=== PATIENT | female | born 1960 | race Caucasian/White ===

== ENCOUNTER → 2024-01-13 11:35 | Outpatient (REF) | payer BC, SELFPAY | LOC: WDC 11:35 | PROVIDERS: ATTENDING PHYSICIAN Obstetrics & Gynecology Gynecology; FAMILY PHYSICIAN Nurse Practitioner Family | DX: Z12.31 Encounter for screening mammogram for malignant neoplasm of breast (principal) | CPT/HCPCS: 77063; 77067 ==

== ENCOUNTER → 2025-01-27 19:06 | Outpatient (REF) | payer BC, SELFPAY | LOC: WDC 19:06 | PROVIDERS: ATTENDING PHYSICIAN Obstetrics & Gynecology Gynecology | DX: Z12.31 Encounter for screening mammogram for malignant neoplasm of breast (principal) | CPT/HCPCS: 77063; 77067 ==